=== PATIENT | male | born 1955 | race Caucasian/White ===

== ENCOUNTER 2016-11-10 07:07 | Emergency (ER) | payer BC ==
--- NOTE | 2016-11-10 07:40 | UC ---
jolly Farnsworth Timothy, scribed for Kvng Heck MD on 11/10/16 at 0724 . General HPI - HPI Summary HPI Summary: Kristopher Salas is a 61 yo male presenting to [facility] with intermittent joint aches in his ankles and intermittent diffuse rash on upper and lower extremities for the past year, concerned for lyme disease. He has seen a heat treat supervisor for his rashes, and was told they should resolve on their own. 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 He notes his heart rate is usually high. He denies any visual changes, fever, or weakness/numbness. His MHx includes appendectomy 2011. He denies any use of medication. His PCP is Dr. Mg, who is retiring and he will receive a referral from him. - History of Current Complaint Stated Complaint: RASH AND JOINT ACHES Time Seen by Provider: 11/10/16 07:24 Hx Obtained From: Patient Onset/Duration: Gradual Onset, Lasting Weeks, Still Present Timing: Constant Onset Severity: Moderate Current Severity: Moderate Pain Location at: ankle joint Character: ache Associated Signs & Symptoms: Positive: Other - upper and lower extremity rash, arthralgia. Negative: Weakness - Allergy/Home Medications Allergies/Adverse Reactions: Allergies Allergy/AdvReac Type Severity Reaction Status Date / Time No Known Allergies Allergy Verified 11/10/16 07:18 Home Medications: Home Medications NK [No Home Medications Reported] 11/10/16 [History Confirmed 11/10/16] PMH/Surg Hx/FS Hx/Imm Hx Other History Of: Negative For: HIV, Hepatitis B, Hepatitis C - Surgical History Surgical History: Yes Surgery Procedure, Year, and Place: Appendectomy, [place], [facility] [place] - Family History Known Family History: Positive: Cardiac Disease, Respiratory Disease - "black lung", Other - throat CA - Social History Occupation: Employed Full-time - construction Alcohol Use: Weekly Substance Use Type: None Smoking Status (MU): Never Smoked Tobacco - Immunization History Most Recent Influenza Vaccination: Not the season Review of Systems Constitutional: Negative Skin: Rash - upper and lower extremities Eyes: Negative ENT: Negative Respiratory: Negative Cardiovascular: Negative Gastrointestinal: Negative Genitourinary: Negative Motor: Negative Neurovascular: Negative Musculoskeletal: Arthralgia - ankle Neurological: Negative Psychological: Negative All Other Systems Reviewed And Are Negative: Yes Physical Exam Triage Information Reviewed: Yes Vital Signs: Initial Vital Signs Temp 97.3 F 11/10/16 07:13 Pulse 97 11/10/16 07:13 Resp 16 11/10/16 07:13 BP 145/89 11/10/16 07:13 Pulse Ox 96 11/10/16 07:13 Vital Signs Reviewed: Yes Eye Exam: Normal ENT: Positive: Normal ENT inspection Neck: Positive: Supple, Nontender Respiratory: Positive: Lungs clear, Normal breath sounds, No respiratory distress Cardiovascular: Positive: RRR, No Murmur Abdomen Description: Positive: Nontender Musculoskeletal: Positive: ROM Intact, No Edema, Other: - no joint effusions. Neurological: Positive: Alert, Muscle Tone Normal, Other: - CN 2-12 grossly intact, strenght 5/5 throughout. Sensory grossly intact. Psychological: Positive: Normal Response To Family Skin: Positive: Other - He has a raised, dry, red oval mary's igloo rash on the right forearm that is not confluent, but has patches or red, lichen appearance. This is isolated. The patient states he has had the same type of rash appear in different areas of his body over the past year. He has seen dermatology already for this. Course/Dx - Course Course Of Treatment: Kristopher Salas is a 61 yo male presenting to [facility] with a Hx of arthralgia in his ankles and intermittent rash on his upper and lower extremities for the past year, with a Hx of tick exposure concerned for lyme disease. Pt medication list reviewed this visit. He will have lyme serology labs drawn. After clinical examination he will be discharged with appropriate instruction and follow up. - Differential Dx - Multi-Symptom Differential Diagnoses: Other - lyme disease Provider Diagnoses: arthralgias. dermatitis Discharge - Discharge Plan Condition: Stable Disposition: HOME Patient Education Materials: Lyme Disease (ED) Referrals: Anthony Mg MD [Primary Care Provider] - 2 Days Infectious, disease office [Other] - 2 Days Additional Instructions: Please follow up with your primary care physician and the infectious disease office regarding your visit to urgent care today. Return to urgent care or the emergency department with any new or recurring symptoms. The documentation as recorded by the jolly bustillo Timothy accurately reflects the service I personally performed and the decisions made by , Kvng Heck MD.
[2016-11-10 07:43] VITALS: BP 145/89
== END 2016-11-10 07:39 | disposition home or self-care (01) ==
LOC: UCEAST 07:07
DX: M25.572 Pain in left ankle and joints of left foot (principal); M25.571 Pain in right ankle and joints of right foot; L30.9 Dermatitis, unspecified
CPT/HCPCS: 86618; 99211; G0463

== ENCOUNTER 2022-02-18 08:33 | Observation (INO) ==
[2022-02-18 09:15] LABS: Hematocrit 40 % (42-52); Hemoglobin 13.7 g/dL (14.0-18.0); Mean Corpuscular HGB Conc 35 g/dL (31-36); Mean Corpuscular Hemoglobin 30 pg (27-31); Mean Corpuscular Volume 87 fL (80-94); Mean Platelet Volume 8.6 fL (7.4-10.4); Platelet Count 236 10^3/uL (150-450); Red Blood Count 4.58 10^6 /uL (4.18-5.48); Red Cell Distribution Width 13 % (10-15)
[2022-02-18 09:21] LABS: INR 1.07 (0.89-1.11)
[2022-02-18 09:52] LABS: Calcium 9.5 mg/dL (8.6-10.3); Potassium 4.3 mmol/L (3.5-5.0); eGFR CKD-EPI 80.1 (>60)
[2022-02-18] MEDS ORDERED: VERAPAMIL 2.5 MG/ML 2 ML VIAL ** 5 mg/2 ml ONE (10:17)
[2022-02-18] MEDS ORDERED: Heparin 1,000 UNIT/ML 10 ml (10,000 UNITS) CATHLAB/DIALYSIS ONE (10:17)
[2022-02-18] MEDS ORDERED: fentaNYL 100 mcg/2 ml 50 MCG/ML VIAL ONE (10:17)
[2022-02-18] MEDS ORDERED: Midazolam 5 mg/5 ml VIAL 1 mg/ml 5 ml VIAL (5 mg) ONE (10:17)
[2022-02-18] MEDS ORDERED: Heparin 2 UNITS/ML 1000 mls 2,000 ML IV ONE (10:17)
[2022-02-18] MEDS ORDERED: nitroGLYCERIN DRIP 25,000 MCG/250 ML BTL ONE (10:17)
[2022-02-18] MEDS ORDERED: Iohexol 350 (CONTRAST) 100 ML PAK IV ONE ×3 (10:18→11:47)
[2022-02-18] MEDS ORDERED: Lidocaine 1% MPF 5 ML VIAL ONE (10:18)
[2022-02-18] MEDS ORDERED: Bivalirudin 250 MG VIAL ONE (11:42)
[2022-02-18 16:53] LABS: Magnesium 1.9 mg/dL (1.9-2.7); Phosphorus 3.5 mg/dL (2.5-5.0)
[2022-02-18 18:32] LABS: HDL Cholesterol 39.7 mg/dL
[2022-02-19 04:55] LABS: ABS Eosinophils 0.1 10^3/ul (0-0.6); ABS Lymphocytes 2.4 10^3/ul (1.0-4.8); ABS Monocytes 0.7 10^3/ul (0-0.8); ABS Neutrophils 5.3 10^3/ul (1.5-7.7); Eosinophil % 1.4 %; Hematocrit 38 % (42-52); Hemoglobin 12.8 g/dL (14.0-18.0); Lymphocyte % 27.8 %; Mean Corpuscular HGB Conc 34 g/dL (31-36); Mean Corpuscular Hemoglobin 30 pg (27-31); Mean Corpuscular Volume 87 fL (80-94); Mean Platelet Volume 8.4 fL (7.4-10.4); Platelet Count 231 10^3/uL (150-450); Red Blood Count 4.34 10^6 /uL (4.18-5.48); Red Cell Distribution Width 13 % (10-15); White Blood Count 8.5 10^3/uL (3.5-10.8)
[2022-02-19 05:50] LABS: Potassium 3.9 mmol/L (3.5-5.0)
[2022-02-19 06:06] LABS: eGFR CKD-EPI 89.4 (>60)
[2022-02-19] MEDS ORDERED: Potassium Chlor 20 meq TAB.ER PO ONE (07:43)
[2022-02-19 10:45] VITALS: BP 104/71
== END 2022-02-19 12:40 | disposition home or self-care (01) ==
LOC: CHICATH 08:33 → ICU 13:03 → INTOOBSV 13:03
PROVIDERS: ADMIT Internal Medicine Critical Care Medicine; ATTEND Internal Medicine Critical Care Medicine

== ENCOUNTER 2024-03-07 06:38 | Inpatient (IN) ==
[2024-03-07] MEDS ORDERED: VERAPAMIL 2.5 MG/ML 2 ML VIAL ** 5 mg/2 ml ONE (08:16)
[2024-03-07] MEDS ORDERED: Midazolam 5 mg/5 ml VIAL 1 mg/ml 5 ml VIAL (5 mg) ONE (08:16)
[2024-03-07] MEDS ORDERED: Heparin 1,000 UNIT/ML 10 ml (10,000 UNITS) CATHLAB/DIALYSIS ONE ×2 (08:16→09:34)
[2024-03-07] MEDS ORDERED: fentaNYL 100 mcg/2 ml 50 MCG/ML VIAL ONE (08:16)
[2024-03-07] MEDS ORDERED: Lidocaine 1% MPF 5 ML VIAL ONE ×2 (08:17→08:18)
[2024-03-07] MEDS ORDERED: Heparin 2 UNITS/ML 1000 mls 2,000 ML IV ONE (08:17)
[2024-03-07] MEDS ORDERED: Iohexol 350 (CONTRAST) 200 ML MDV IV ONE (08:18)
[2024-03-07] MEDS ORDERED: Iohexol 350 (CONTRAST) 100 ML PAK IV ONE (08:18)
[2024-03-07] MEDS ORDERED: nitroGLYCERIN DRIP 25,000 MCG/250 ML BTL ONE (08:18)
[2024-03-07] MEDS ORDERED: niCARdipine 0.1MG/ML IVPREMIX 20 MG/200 ML BAG IV ONE (09:05)
[2024-03-07] MEDS ORDERED: Heparin 2 UNITS/ML 1000 mls 1,000 ML IV ONE (09:15)
[2024-03-07] MEDS ORDERED: Ondansetron 4 mg VIAL 2 MG/ML 2 ml VIAL IV PRN (10:54)
[2024-03-07 20:29] LABS: Calcium 8.9 mg/dL (8.6-10.3); Creatinine, Serum 1.09 mg/dL (0.67-1.17); Magnesium 1.9 mg/dL (1.9-2.7)
[2024-03-07] MEDS: Magnesium Sulfate 2 gm BAG 2 GM/50 ML BAG ONE (21:10)
[2024-03-07] MEDS: Magnesium Sulfate 2 gm BAG 2 GM/50 ML BAG IVPB ONE (21:10)
[2024-03-08 04:19] LABS: ABS Basophils 0.1 10^3/uL (0.0-0.1); ABS Eosinophils 0.1 10^3/uL (0.0-0.5); ABS Lymphocytes 2.5 10^3/uL (1.0-4.8); ABS Monocytes 0.8 10^3/uL (0.0-1.1); ABS Neutrophils 5.2 10^3/uL (1.5-7.6); ABS Nucleated RBC 0.01 10^3/ul; Eosinophil % 1.5 %; Hematocrit 38.8 % (38-53); Hemoglobin 13.5 g/dL (13.2-16.3); Lymphocyte % 29.1 %; Mean Corpuscular Hemoglobin 31.1 pg (27-33); Mean Corpuscular Hgb Conc 34.8 g/dL (31-36); Mean Corpuscular Volume 89.1 fL (80-97); Mean Platelet Volume 8.6 fL (7.5-11.2); Nucleated Red Blood Cells % 0.1 %/100WBC (0.0-0.8); Platelet Count 187 10^3/uL (150-450); Red Blood Count 4.35 10^6/uL (4.06-5.63); Red Cell Distribution Width 13.1 % (12-17); White Blood Count 8.8 10^3/uL (3.6-10.2)
[2024-03-08 04:48] LABS: Albumin/Globulin Ratio 1.9 (1-3); Creatinine, Serum 1.01 mg/dL (0.67-1.17); Globulin 2.1 g/dL (2-4); HDL Cholesterol 29.6 mg/dL; Potassium 4.2 mmol/L (3.5-5.0); Total Bilirubin 0.8 mg/dL (0.2-1.0); Total Protein 6.1 g/dL (6.4-8.9)
[2024-03-08 07:24] LABS: Magnesium 2.3 mg/dL (1.9-2.7)
[2024-03-08 09:50] VITALS: BP 148/90
== END 2024-03-08 11:50 | disposition home or self-care (01) | DRG 324 ==
LOC: CHICATH 06:38 → ICU 10:55
PROVIDERS: ADMIT Specialist; ATTEND Internal Medicine